=== PATIENT | female | born 1990 | race Caucasian/White ===

== ENCOUNTER 2021-04-01 09:05 | Emergency (ER) | payer OTHER ==
[2021-04-01] MEDS ORDERED: Metoclopramide HCl 10 MG/2 ML VIAL ONE (11:57)
[2021-04-01] MEDS ORDERED: diphenhydrAMINE 50 MG/ML VIAL ONE (11:57)
[2021-04-01] MEDS ORDERED: Ketorolac Tromethamine 30 MG/ML VIAL ONE (11:57)
[2021-04-01 12:25] LABS: #Eosinphils 0.1 10x3/uL (0.0-0.5); #Monocytes 0.4 10x3/uL (0.0-1.1); #Neutrophils 4.5 10x3/uL (1.5-8.4); %Basophils 0.5 % (0.0-2.0); %Lymphocytes 22.3 % (18.0-47.0); %Monocytes 6.3 % (0.0-10.0); %Neutrophils 68.7 % (40.0-75.0); Hemoglobin 14.4 g/dL (12.0-15.5); Mean Corpuscular HGB CONC 33.4 g/dL (32.0-36.0); Mean Corpuscular Hemoglobin 31.2 pg (27.0-33.0); Mean Corpuscular Volume 93.3 fl (81.6-98.3); Mean Platelet Volume 9.2 fl (7.4-10.4); Platelet Count 264 10x3/uL (150-450); RBC Distribution Width 12.5 % (11.5-14.5); Red Blood Cell (RBC) Count 4.62 10x6/uL (3.90-5.03); White Blood Cell (WBC) Count 6.5 10x3/uL (3.5-10.5)
[2021-04-01 12:37] LABS: BHCG - Serum Negative (NEGATIVE)
[2021-04-01 12:38] LABS: Pregs Control Background? CLEAR/WHITE (CLR/WHITE); Pregs Control Bar Appear? YES (CONTROL BAR)
[2021-04-01 12:45] LABS: ALT (SGPT) 15 U/L (8-55); AST (SGOT) 17 U/L (5-34); Albumin 4.4 g/dL (3.5-5.0); Alkaline Phosphatase 70 U/L (40-110); Anion Gap 13 mmol/L (10-20); BUN (Urea Nitrogen) 13 mg/dL (7.0-18.7); Bilirubin, Total 0.5 mg/dL (0.2-1.2); Calc. Creatinine Clearance 0 mL/min (70-130); Calcium 10.2 mg/dL (7.8-10.44); Carbon Dioxide 23 mmol/L (22-29); Chloride 107 mmol/L (98-107); Globulin 3.4 g/dL (2.4-3.5); Glucose 85 mg/dL (70-105); Potassium 4.4 mmol/L (3.5-5.1); Protein, Total 7.8 g/dL (6.0-8.3); Sodium 139 mmol/L (136-145)
[2021-04-01] MEDS ORDERED: Dexamethasone 10 MG/ML VIAL ONE (13:56)
[2021-04-01] MEDS ORDERED: Magnesium 2 GM/50 ML BAG (IN WATER) ONE (13:56)
== END 2021-04-01 16:04 | disposition home or self-care (01) ==
LOC: CSHERS 09:05
DX: R51.9 Headache, unspecified (principal); M62.838 Other muscle spasm; R29.700 NIHSS score 0
CPT/HCPCS: 70450; 80053; 84703; 85025; 85652; 86140; 96365; 96367; 96375; J1100; J1200; J1885; J2765; J3475

== ENCOUNTER 2022-06-21 14:17 | Outpatient (CLI) | payer BC | END 2022-06-21 14:18 | disposition home or self-care (01) | LOC: CSHULT 14:17 | PROVIDERS: ATTEND Obstetrics & Gynecology | DX: R31.9 Hematuria, unspecified (principal) | CPT/HCPCS: 76770 ==

== ENCOUNTER 2022-11-01 08:04 | Outpatient (CLI) | payer BC ==
[2022-11-01] MEDS ORDERED: Iopamidol 300 61% 100 ML VIAL FS ONE (09:16)
== END 2022-11-01 08:05 | disposition home or self-care (01) ==
LOC: CSHCT 08:04
PROVIDERS: ATTEND Physician Assistant Medical
DX: R19.8 Other specified symptoms and signs involving the digestive system and abdomen (principal); R63.5 Abnormal weight gain; K21.9 Gastro-esophageal reflux disease without esophagitis; K44.9 Diaphragmatic hernia without obstruction or gangrene; R10.30 Lower abdominal pain, unspecified
CPT/HCPCS: 74177